=== PATIENT | female | born 1990 | race African-American/Black ===

== ENCOUNTER → 2019-09-19 | Outpatient (CLI) | payer OTHER, MEDICAID ==
--- NOTE | 2019-09-19 14:16 | RADIOLOGY REPORT (SQ) ---
EXAM DESCRIPTION: FOOT RIGHT COMPLETE COMPLETED DATE/TIME: 09/19/2019 2:04 pm REASON FOR STUDY: (M84.374A)STRESS FRACTURE, RIGHT FOOT, INITIAL ENCOUNTER FOR FRACTURE M84.374A ST RESS FRACTURE, RIGHT FOOT, INITIAL ENCOUNTER FOR COMPARISON: None. NUMBER OF VIEWS: Three views. TECHNIQUE: AP, lateral and oblique radiographic images acquired of the right foot. LIMITATIONS: None. FINDINGS: MINERALIZATION: Normal. BONES: No acute fracture or dislocation. No worrisome bone lesions. JOINTS: No dislocation. No significant effusion. Mild midfoot osteophytosis. SOFT TISSUES: No soft tissue swelling. No foreign body. OTHER: No other significant finding. IMPRESSION: NEGATIVE STUDY OF THE RIGHT FOOT. NO RADIOGRAPHIC EVIDENCE OF ACUTE INJURY. TECHNICAL DOCUMENTATION: JOB ID: [id number] [employer]- All Rights Reserved Reading location - IP/workstation name: [email or web address]
== END ==
LOC: RAD 13:44
PROVIDERS: ATTEND Podiatrist Foot & Ankle Surgery
DX: M84.374A Stress fracture, right foot, initial encounter for fracture (principal)